=== PATIENT | male | born 1985 | race Caucasian/White ===

== ENCOUNTER 2017-09-29 08:07 | Day surgery (SDC) | payer MEDICAID, SELFPAY ==
[2017-09-26 14:23] VITALS: BMI 19.6
[2017-09-29] VITALS (9 sets, daily range): BP systolic 101–123; BP diastolic 56–81; PULSE 71–82; RESP 16–20; TEMP 36.3–37.1; O2SAT 93–100
--- NOTE | 2017-09-29 08:30 | HMH.ANESCL ---
[facility] Anesthesia Checklist - Patient Identification Patient Identification: Arm Band, Family - Structural Data Admitted From: Home Planned Operative Procedure/s: dental eua Consent for Planned Operative Procedure(s) Verified: Yes Verified Documents: Surgical Consent - NPO Status Verified Time NPO: 00:00 - Additional verifications Patient : No Anesthesia Reactions: No Hx Blood Transfusions: No Blood Transfusion Reaction: No Cephalosporin Allergy: No Previous Colonoscopy: No - Cardiovascular Assessment Heart Sounds: S1 & S2 Pulse Strength: Baseline Pulse Rhythm: Regular Peripheral Edema: No - Airway Assessment C-Spine Mobility Assessed: Yes TMJ Mobility Assessed: Yes Dentition: Poor Dentition - Neurological Assessment Level of Consciousness: Awake, Alert, Combative, Restless Hx Seizures: Yes Numbness or tingling in extremities: No - Anesthesia Plan Anesthesia Risk discussed: Yes Anesthesia Plan: Verified ASA Class: III Anesthesia Type: General [facility] Anesthesia HX I have reviewed the patient's past medical history: Yes Medical History: Reports:: Asthma, Gastroesophageal Reflux Disease(GERD), Seizures Denies:: Anxiety, Cancer (barretts), Depression, Diabetes Mellitus Type 1, Diabetes Mellitus Type 2, Internal Pacemaker, MRSA Other Medical History: Reports: Anemia Laterality Cases: Bilateral: Myringotomy (Ear Tubes), Tonsillectomy, Other Other Surgeries: Yes: Other. No: Pacemaker Amputation: No Fractures: No *Family Hx:: Cancer, Stroke, Heart Attack
[2017-09-29 10:35] LABS: Basophils % 0.6 % (0.1-2.0); Eosinophils # 0.1 K/mm3 (0.0-0.4); Eosinophils % 2.3 % (0.1-12.0); Hemoglobin 13.5 g/dL (14.1-18.0); Lymphocytes # 0.9 K/mm3 (0.7-4.5); Lymphocytes % 26.3 K/mm3 (10-50); Mean Corpuscular HGB Conc 32.1 g/dL (31.8-35.4); Mean Corpuscular Hemoglobin 28.7 pg (27.0-31.2); Mean Corpuscular Volume 89.3 fl (80-94); Mean Platelet Volume 6.9 fl (7.4-10.4); Monocytes # 0.3 K/mm3 (0.1-1.0); Monocytes % 9.2 % (1.7-9.3); Neutrophils % 61.5 % (37.0-80.0); Platelet Count 289 K/mm3 (142-424); Red Blood Count 4.71 M/mm3 (4.60-6.20); White Blood Count 3.3 K/mm3 (4.8-10.8)
[2017-09-29 10:44] LABS: Alanine Aminotransferase 30 U/L (12-78); Albumin/Globulin Ratio 1.3 (1.1-1.8); Alkaline Phosphatase 89 U/L (46-116); Aspartate Amino Transferase 16 U/L (15-37); Bilirubin,Total 0.2 mg/dL (0.2-1.0); Blood Urea Nitrogen 3 mg/dL (7-18); Calcium 8.9 mg/dL (8.5-10.1); Carbon Dioxide 31 mmol/L (21.0-32.0); Chloride 104 mmol/L (98-107); Creatinine Clearance Estimated 90 mL/min (0-300); Creatinine,Serum 0.79 mg/dL (0.70-1.30); Estimated Glomerular Filt Rate 114 ml/min (>60); GFR (African American) 138 ML/MIN (>60); Globulin 3.2 gm/dl (1.3-3.2); Glucose 101 mg/dL (74-106); Sodium 141 mmol/L (136-145); Total Protein,Serum 7.2 gm/dL (6.4-8.2)
--- NOTE | 2017-09-29 12:20 | P.PN_ITS ---
[facility] Anesthesia Record Part I Intake, IV Amount: 800 Estimated blood loss (mL): 0 Urine output (mL): 0 Blood Pressure: 115/62 SaO2: 98 Pulse Rate: 71 Respiratory Rate: 16 Temperature: 97.3 F Patient is:: Drowsy, Stable Stable to PACU at:: 12:15
--- NOTE | 2017-09-29 12:20 | P.PN_ITS ---
[facility] Anesthesia Record Part II Discharge Time: 12:45 Destination: [facility] PACU nurse assessment reviewed?: Yes Patient Condition:: Good Anesthesia Complications:: None
--- NOTE | 2017-09-29 12:20 | HMH.ANESII ---
[facility] Anesthesia Record Part II Discharge Time: 12:45 Destination: located within [facility] PACU nurse assessment reviewed?: Yes Patient Condition:: Good Anesthesia Complications:: None
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
--- NOTE | 2017-09-29 15:51 | SUR.OPER ---
Throat pack in 1133 and taken out at 1203 SS,RN Xrays started at 1125 and denistry started at 1133 SS,RN
--- NOTE | 2017-09-30 16:09 | HMH.ORALP ---
Date of procedure: 09/29/17 Date of : 85 Pre-op Diagnosis:: Mentally handicapped adult with dental decay present. Post-op diagnosis:: same Procedure performed:: The 32, M patient was transported to the [facility] OR pre operative holding room. In the holding room, an IV was started. The patient was then transported to the operating room where Al was nasotracheal intubated. Anesthesia was induced and maintained. The patient was draped in the usual manner. 18 intraoral x-rays were taken. The throat was suctioned free of debris. One single moist throat pack was placed in the posterior oral pharynx. A complete intra-oral exam and review of the complete set of x-rays was completed. Periodonal scaling and root planing was done in all four quadrants. A Prophy and fluoride treatment were also completed. The following teeth were restored as follows: Resin Based composite fillings were placed on #5-MB surface. Filling was filled with A-2 white resin filling material. Due to patient being under anesthesia no numbing was necessary. Estimated blood loss was nil. The patient tolerated all surgical procedures well and there were no surgical complications. The throat was irrigated and suctioned free of debris. The throat pack was removed. The patient was extubated without complications and taken to the postoperative anesthetic recovery room in satisfactory condition. Surgeon:: Lilian Randhawa DMD Business Services Assistant(s):: Lashanda Suarez Anesthesia: GETKaylee Estimated blood loss (mL): 0 Operative findings:: Same as procedure performed. Operative note:: Same as procedure performed. Disposition: PACU Specimens:: None Complications:: None.
[2017-10-01 10:28] LABS: Levetiracetam (Keppra) 84.3 ug/mL (10.0-40.0)
== END 2017-09-29 13:34 | disposition home or self-care (01) ==
LOC: OR 08:09
PROVIDERS: Family Provider Nurse Practitioner Family; PCP Nurse Practitioner Family; Visit Provider Dentist General Practice
PROC: (CPT 41899; principal; 2017-09-29 09:45)
DX: K02.9 Dental caries, unspecified (principal); F79 Unspecified intellectual disabilities
CPT/HCPCS: 41899; D0210; D4341; 80053; 80177; 85025; J2405

== ENCOUNTER → 2018-02-05 13:08 | Outpatient (CLI) | payer MEDICAID, SELFPAY | PROVIDERS: Visit Provider Physician Assistant | DX: R31.9 Hematuria, unspecified (principal) ==

== ENCOUNTER → 2018-02-06 13:11 | Outpatient (CLI) | payer MEDICAID, SELFPAY ==
[2018-02-06 13:13] LABS: Microscopic, Urine URINE MICROSCOPIC (MICROSCOPIC)
[2018-02-06 13:32] LABS: Appearance,Urine CLEAR (Clear); Bilirubin,Urine Negative (Negative); Blood, Urine 3+ (Negative); Color,Urine YELLOW (Yellow); Glucose,Urine (UA) Negative (Negative); Ketones,Urine Negative (Negative); Leukocyte Esterase,Urine Negative (Negative); Nitrate,Urine Negative (Negative); Protein,Urine Negative (Negative); Urobilinogen,Urine 0.2 EU/dl (0.2)
[2018-02-06 13:54] LABS: Amorphous Sediment,Urine 1+ /lpf; Bacteria,Urine Trace /lpf; RBC,Urine 50-100 #/hpf (0-3); Squamous Epithelial Cell,Urine Occasional #/hpf (0-5); WBC,Urine Occasional #/hpf (0-3)
== END ==
PROVIDERS: Visit Provider Physician Assistant
DX: R32 Unspecified urinary incontinence (principal)
CPT/HCPCS: 81001

== ENCOUNTER → 2018-02-10 13:50 | Outpatient (CLI) | payer MEDICAID, SELFPAY ==
--- NOTE | 2018-02-10 13:52 | US_ITS ---
US kidney retroperitoneal comp Ordering Physician: SANDEEP Canseco Patient Age: 32 years: Male HISTORY: ITS.REASON: Urinary Incontinence Urinary incontinence has indwelling catheter. Possible blockage TECHNIQUE: Bilateral renal ultrasound with survey of bladder COMPARISON :None relevant available FINDINGS. The kidneys demonstrate no hydronephrosis nor masses good color Doppler flow normal size. Cortex appears well maintained. No ureteral dilatation. A question echogenic focus from calculus right kidney. Equivocal . Right kidney 9.5 cm length on my measurement x6.2 x 5 cm. Left kidney 10 cm x 1.3 cm x 6.3 cm. Images included spleen: appear normal size. Final images show a moderately filled bladder. Moderate size measuring 7 cm x 4.1 cm x 8.7 cm. With this the estimated volume by the ultrasound algorithm is 131-mL. I do not see the indwelling catheter on these pictures of the bladder. IMPRESSION: Kidneys appear normal in size with no hydronephrosis. Moderate size filled bladder observed..
== END ==
PROVIDERS: Family Provider Nurse Practitioner Family; PCP Nurse Practitioner Family; Visit Provider Physician Assistant
DX: R32 Unspecified urinary incontinence (principal)
CPT/HCPCS: 76770

== ENCOUNTER 2018-04-15 11:01 | Outpatient (CLI) | payer MEDICAID, SELFPAY ==
[2018-04-15 11:55] VITALS: BP 146/96; PULSE 120; RESP 20; O2SAT 98
[2018-04-15 12:20] VITALS: BP 146/96; PULSE 120; RESP 20; O2SAT 98
[2018-04-15 12:35] VITALS: BP 125/92; PULSE 91; RESP 16
[2018-04-15 13:05] VITALS: BP 136/77; PULSE 97; RESP 16
== END 2018-04-15 13:30 | disposition home or self-care (01) ==
LOC: INF 11:01
PROVIDERS: PCP Internal Medicine Adolescent Medicine; Visit Provider Internal Medicine Adolescent Medicine
DX: K90.9 Intestinal malabsorption, unspecified (principal)
CPT/HCPCS: 96372; 96374; Q0138

== ENCOUNTER → 2018-04-30 10:44 | Outpatient (CLI) | payer MEDICAID, SELFPAY ==
--- NOTE | 2018-04-30 10:47 | XR_ITS ---
XR chest AP HISTORY: Cough. ITS.REASON: surgery clearance ORDERING PHYSICIAN: Al Moreau MD PATIENT AGE: 32 years Technique: AP CXR. Single view COMPARISON: Previous CXR 04/16/2017 & 02/07/2017 FINDINGS: Appears to be diffuse prominent gaseous distention of the esophagus on this AP CXR.. Curious unusual dilated esophageal appearance throughout with what I suspect is some generous wall thickness esophagus particularly evident distal.. No air-fluid level. The gaseous distention is seen throughout entire thoracic esophagus and lower cervical.-With Dilatation most evident at the level of the head of the clavicles where the gas distended esophagus measures over 4 cm diameter.. Requires correlation.. Differential diagnosis would include achalasia, scleroderma, Chagas disease, distal esophageal stricture I briefly entertain the possibility that the patient could've had a large belch just at the time of the CXR, but I doubt this is the case given overall appearance.. More likely that this appearance there there is underlying pathology at esophagus.. No fluid level is seen within the esophagus. Moderate distended fluid-filled stomach. Patient would benefit from further evaluation of esophagus, particular if symptoms in this region. Otherwise there is less then optimal inspiration on today's CXR, with with diaphragms only down to the anterior fourth rib bilaterally. This poor inspiration slightly crowds markings but the lungs appear overall clear with no active disease. Cortex and not the patient was difficult and uncooperative. a stable calcified granuloma at the right lung projected over the between the anterior right third and fourth rib. This is unchanged stable. Small calcified hilar nodes.. Borderline cardiomegaly most likely with heart size accentuated by the suboptimal inspiration.. Lungs are clear. Otherwise. No pleural effusions or pleural findings. No acute bony abnormalities. IMPRESSION:\ 1. Appears to be diffuse pronounced gaseous distention of the entire thoracic esophagus & including lower cervical esophagus.. Correlation required. Note comments in text. (Is there a history of achalasia, or scleroderma, or reflux stricture?. Recommend further evaluation of the esophagus). 2. Suboptimal inspiration on this CXR; but the lungs otherwise appear clear otherwise with no active disease. No active cardiopulmonary disease.
== END ==
PROVIDERS: PCP Internal Medicine Adolescent Medicine; Visit Provider Internal Medicine Adolescent Medicine
DX: R05 Cough (principal)
CPT/HCPCS: 71045

== ENCOUNTER → 2018-12-10 13:34 | Outpatient (CLI) | payer MEDICAID, SELFPAY ==
[2018-12-10 13:54] LABS: Basophils % 0.3 % (0.1-2.0); Eosinophils # 0.1 K/mm3 (0.0-0.4); Eosinophils % 0.9 % (0.1-12.0); Hematocrit 42.2 % (42.0-52.0); Hemoglobin 14.8 g/dL (14.1-18.0); Lymphocytes # 0.8 K/mm3 (0.7-4.5); Lymphocytes % 6.4 % (10-50); Mean Corpuscular HGB Conc 35.1 g/dL (31.8-35.4); Mean Corpuscular Hemoglobin 31.4 pg (27.0-31.2); Mean Corpuscular Volume 89.4 fl (80-94); Mean Platelet Volume 6.4 fl (7.4-10.4); Monocytes # 0.5 K/mm3 (0.1-1.0); Monocytes % 3.9 % (1.7-9.3); Neutrophils % 88.4 % (37.0-80.0); Platelet Count 303 K/mm3 (142-424); Red Blood Count 4.72 M/mm3 (4.60-6.20); Red Cell Distribution Width 13.2 % (11.5-17.5); White Blood Count 12.5 K/mm3 (4.8-10.8)
[2018-12-10 13:56] LABS: MANUAL DIFFERENTIAL MANUAL DIFFERENTIAL (MANUAL DIFF)
[2018-12-10 14:09] LABS: Lymphocytes % 9 % (10-50); Monocytes % 3 % (2-9); Neutrophils % 88 % (42-76); Platelet Estimate Normal; RBC Morphology Normal; Total Cells Counted 100
[2018-12-10 14:43] LABS: Ferritin 83 ng/mL (8-388)
[2018-12-12 07:13] LABS: Iron 28 ug/dL (38-169); UIBC 271 ug/dL (111-343)
[2018-12-13 17:22] LABS: Iron Saturation 9 % (15-55)
== END ==
PROVIDERS: Visit Provider Internal Medicine Medical Oncology
DX: D50.9 Iron deficiency anemia, unspecified (principal)
CPT/HCPCS: 36415; 82728; 83540; 83550; 85007; 85025

== ENCOUNTER → 2018-12-15 15:25 | Outpatient (CLI) | payer MEDICAID, SELFPAY | PROVIDERS: Visit Provider Physician Assistant | DX: R82.998 Other abnormal findings in urine (principal) | CPT/HCPCS: 87086 ==

== ENCOUNTER 2019-01-27 10:59 | Outpatient (CLI) | payer MEDICAID, SELFPAY ==
[2019-01-27 11:05] VITALS: BP 158/97; PULSE 114; RESP 20; O2SAT 96
--- NOTE | 2019-01-27 11:30 | PC.NURSE ---
1130-pt drowsy,eyes open,follows commands minimally, loc pt's baseline.
[2019-01-27 11:35] VITALS: BP 154/96; PULSE 111; RESP 18; O2SAT 96
--- NOTE | 2019-01-27 11:45 | PC.NURSE ---
1145-pt vomited in bed but is back to baseline; pt alert not drowsy.
[2019-01-27 12:04] VITALS: BP 129/78; PULSE 118; RESP 20; O2SAT 96
--- NOTE | 2019-01-27 12:04 | PC.NURSE ---
1204-pt has not had anymore episodes of emesis; pt is back to baseline.
[2019-01-27 12:25] VITALS: BP 132/85; PULSE 115; RESP 20; O2SAT 95
--- NOTE | 2019-01-27 12:26 | PC.NURSE ---
1105-pt alert, eyes open,follows commands minimally pt's baseline.
== END 2019-01-27 12:25 | disposition home or self-care (01) ==
LOC: INF 11:00
PROVIDERS: Visit Provider Internal Medicine Medical Oncology
DX: D50.9 Iron deficiency anemia, unspecified (principal)
CPT/HCPCS: 96372; 96374; J1439

== ENCOUNTER 2019-02-03 11:01 | Outpatient (CLI) | payer MEDICAID, SELFPAY ==
[2019-02-03 12:11] VITALS: BP 183/89; PULSE 123; RESP 18; O2SAT 98
--- NOTE | 2019-02-03 12:11 | PC.NURSE ---
1211-pt alert and at baseline.
[2019-02-03 12:40] VITALS: BP 159/96; PULSE 112; RESP 18; O2SAT 96
[2019-02-03 13:00] VITALS: BP 140/87; PULSE 107; RESP 18; O2SAT 95
--- NOTE | 2019-02-03 13:00 | PC.NURSE ---
1300-pt alert back to baseline
--- NOTE | 2019-02-03 14:56 | PC.NURSE ---
1240-pt slightly drowsy but alert.
== END 2019-02-03 13:10 | disposition home or self-care (01) ==
LOC: INF 11:01
PROVIDERS: Visit Provider Internal Medicine Medical Oncology
DX: D50.9 Iron deficiency anemia, unspecified (principal)
CPT/HCPCS: 96365; 96372; J1439

== ENCOUNTER 2019-10-01 10:30 | Outpatient (CLI) | payer MEDICAID, SELFPAY ==
[2019-10-01 10:30] VITALS: BP 127/77; PULSE 90; RESP 20; TEMP 36.9; O2SAT 95
[2019-10-01 11:15] VITALS: BP 112/74; PULSE 68; RESP 20; TEMP 36.9; O2SAT 95
== END 2019-10-01 12:10 | disposition home or self-care (01) ==
LOC: INF 10:30
PROVIDERS: Visit Provider Internal Medicine Medical Oncology
DX: D50.9 Iron deficiency anemia, unspecified (principal); K90.9 Intestinal malabsorption, unspecified
CPT/HCPCS: 96365; Q0138

== ENCOUNTER 2019-10-04 11:14 | Outpatient (CLI) | payer MEDICAID, SELFPAY ==
[2019-10-04 11:14] VITALS: BP 124/74; PULSE 68; RESP 20; TEMP 36.9; O2SAT 95
[2019-10-04 11:45] VITALS: BP 123/74; PULSE 68; RESP 20; TEMP 36.9; O2SAT 95
== END 2019-10-04 11:45 | disposition home or self-care (01) ==
LOC: INF 11:14
PROVIDERS: Visit Provider Internal Medicine Medical Oncology
DX: D50.9 Iron deficiency anemia, unspecified (principal); K90.9 Intestinal malabsorption, unspecified
CPT/HCPCS: 96374; Q0138

== ENCOUNTER 2020-03-02 07:42 | Day surgery (SDC) | payer MEDICAID, SELFPAY ==
[2020-02-29 09:45] VITALS: BMI 19.9
[2020-03-02] VITALS (11 sets, daily range): BP systolic 107–169; BP diastolic 52–88; PULSE 78–119; RESP 13–20; TEMP 36.1–36.8; O2SAT 95–100
[2020-03-02 10:28] LABS: Chloride 102 mmol/L (98-107); Potassium 4.3 mmoL/L (3.5-5.1); Sodium 139 mmol/L (136-145)
[2020-03-02 10:31] LABS: Alanine Aminotransferase 23 U/L (12-78); Albumin Level 4.2 g/dl (3.5-5.0); Albumin/Globulin Ratio 1.6 (1.1-1.8); Alkaline Phosphatase 61 U/L (38-126); Anion Gap 13.3 mEq/L (5-15); Aspartate Amino Transferase 29 U/L (17-59); Bilirubin,Total 0.4 mg/dl (0.2-1.3); Blood Urea Nitrogen 6 mg/dl (9-20); Calcium 9.4 mg/dl (8.4-10.2); Carbon Dioxide 28 mmol/L (22.0-30.0); Creatinine Clearance Estimated 114 mL/min (50-200); Estimated Glomerular Filt Rate 154 ml/min (>60); GFR (African American) 187 ML/MIN (>60); Globulin 2.6 g/dL (1.3-3.2); Glucose 104 mg/dl (74-100); Total Protein,Serum 6.8 g/dl (6.3-8.2)
--- NOTE | 2020-03-02 10:35 | P.PN_ITS ---
[facility] Anesthesia Checklist - Patient Identification Patient Identification: Arm Band, Guardian - Structural Data Admitted From: Home Planned Operative Procedure/s: dental Consent for Planned Operative Procedure(s) Verified: Yes Verified Documents: Surgical Consent, History and Physical - NPO Status Verified Time NPO: 00:00 - Additional verifications Anesthesia Reactions: No Hx Blood Transfusions: No Blood Transfusion Reaction: No - Airway Assessment C-Spine Mobility Assessed: Yes (mp2) TMJ Mobility Assessed: Yes Dentition: Good Dentition - Neurological Assessment Level of Consciousness: Awake - Anesthesia Plan Anesthesia Risk discussed: Yes Anesthesia Plan: Verified ASA Class: III Anesthesia Type: General [facility] History I have reviewed the patient's past medical history: Yes Medical History: Reports:: Asthma, Gastroesophageal Reflux Disease(GERD), Heart Murmur, Seizures Denies:: Anxiety, Cancer, Depression, Diabetes Mellitus Type 1, Diabetes Mellitus Type 2, Internal Pacemaker, MRSA *Have you ever received a pneumonia vaccine?: No *Have you received a flu vaccine this season?: No Other Medical History: Reports: Anemia. Denies: Blood Transfusion Reaction Anesthesia experience/problems:: nac Laterality Cases: Bilateral: Myringotomy (Ear Tubes), Tonsillectomy, Other Other Surgeries: Yes: Other. No: Pacemaker Amputation: No Fractures: No - *Social History Smoking Status: Never smoker Alcohol Intake: never Alcohol Intake Frequency:: other Substance Use Type: denies use *Occupational Status:: disabled Housing: house Household Members: family *Travel in the last 8 weeks: None - Psychiatric History Pschychiatric History:: Denies:: Anxiety, Attention Deficit Disorder, Bipolar Disorder, Depression, E ating Disorder, Post Traumatic Stress Disorder, Suicide Attempt, Psychiatric Treatment, Schizophrenia Family Hx:: Unable to obtain
[2020-03-02 10:38] LABS: Basophils # 0.1 K/mm3 (0-0.2); Basophils % 0.6 % (0.1-2.0); Eosinophils # 0.3 K/mm3 (0.0-0.4); Eosinophils % 3.5 % (0.1-12.0); Hematocrit 40.1 % (42.0-52.0); Lymphocytes # 0.7 K/mm3 (0.7-4.5); Lymphocytes % 7.7 % (10-50); Mean Corpuscular Hemoglobin 32.5 pg (27.0-31.2); Monocytes # 0.4 K/mm3 (0.1-1.0); Monocytes % 4.2 % (1.7-9.3); Neutrophils # 7.3 K/mm3 (1.8-7.8); Neutrophils % 83.9 % (37.0-80.0); Platelet Count 263 K/mm3 (142-424); Red Blood Count 4.31 M/mm3 (4.60-6.20); Red Cell Distribution Width 12.2 % (11.5-17.5); White Blood Count 8.7 K/mm3 (4.8-10.8)
[2020-03-02 10:40] LABS: Coronavirus 19 IgG Antibody Negative (Negative); Coronavirus 19 IgM Antibody Negative (Negative)
[2020-03-02 10:48] LABS: Free Thyroxine Index 2.6 ug/dL (5.93-13.13); T4 (Thyroxine) 8.9 ug/dl (5.53-11.0); Triiodothryronine (T3) Uptake 29 % (23.5-40.5)
[2020-03-02 11:01] LABS: Thyroid Stimulating Hormone 2.39 uIU/mL (0.465-4.68)
--- NOTE | 2020-03-02 13:52 | P.PN_ITS ---
[facility] Anesthesia Record Part I Intake, IV Amount: 800 Estimated blood loss (mL): 0 Urine output (mL): 0 (NM) Blood Products used (#): none Blood Pressure: 108/64 SaO2: 96 Pulse Rate: 79 Respiratory Rate: 16 Temperature: 97.0 F Patient is:: Drowsy, Stable Stable to PACU at:: 13:45
--- NOTE | 2020-03-02 20:20 | HMH.ANESII ---
[facility] Anesthesia Record Part II Discharge Time: 14:15 Destination: Surgical Day Care (OP Surgery) PACU nurse assessment reviewed?: Yes Patient Condition:: Good Anesthesia Complications:: None Swallowing reflex intact?: Yes Cyanosis?: No Blood Pressure: 122/82 Pulse Rate: 88 Temperature: 97 F Mental Status: Alert & Oriented (Returned to baseline mental status), Confused and Disoriented Pain level:: 0 Nausea and/or vomitting:: None Intake, IV Amount: 0
--- NOTE | 2020-03-03 09:34 | P.PCN_ITS ---
Date of procedure: 03/02/20 Date of : 85 Pre-op Diagnosis:: Periodontal gum disease and broken/lost filling. Post-op diagnosis:: other (Restored) Procedure performed:: The 34, M patient was transported to the [facility] OR pre operative holding room per his father. In the holding room, an IV was started. The patient was then transported to the operating room where Al was nasotracheal intubated. Anesthesia was induced and maintained. The patient was draped in the usual manner. 18 intraoral x-rays were taken. The throat was suctioned free of debris. One single moist throat pack was placed in the posterior oral pharynx. A complete intra-oral exam and review of the complete set of x-rays was completed. Periodontal scaling and root planing was completed in all four quadrants. The patient was found to have: #12-DF surfaces was repaired using B1 white flowable resin material. Bite was checked and adjusted as needed. Estimated blood loss was nil. The patient tolerated all procedures well and there were no complications. The throat was irrigated and suctioned free of debris. The throat pack was removed. The patient was extubated without complications and taken to the postoperative anesthetic recovery room in satisfactory condition. Surgeon:: Lilian Randhawa DMD Land Survey Technician(s):: Amy Weston SLEEVE SETTER SAFETY STITCH:: Teo Wang Anesthesia: GETA Estimated blood loss (mL): 0 Operative findings:: Same as pre-op diagnosis Operative note:: Same as procedure performed. Disposition: PACU Specimens:: 0 Complications:: none
[2020-03-06 10:31] LABS: Levetiracetam (Keppra) 51.2 ug/mL (10.0-40.0)
== END 2020-03-02 14:47 | disposition home or self-care (01) ==
LOC: OR 07:46
PROVIDERS: PCP Internal Medicine Adolescent Medicine; Visit Provider Dentist General Practice
PROC: (CPT 41899; principal; 2020-03-02 09:45)
DX: K02.9 Dental caries, unspecified (principal)
CPT/HCPCS: 41899; D4341; 80053; 80177; 84436; 84443; 84479; 85025; 86328; J2405

== ENCOUNTER → 2020-12-19 09:14 | Outpatient (CLI) | payer MEDICAID, SELFPAY ==
[2020-12-19 09:58] LABS: Basophils # 0.1 K/mm3 (0-0.2); Basophils % 1.2 % (0.1-2.0); Eosinophils # 0.5 K/mm3 (0.0-0.4); Eosinophils % 10.1 % (0.1-12.0); Hematocrit 45.4 % (42.0-52.0); Hemoglobin 15.5 g/dL (14.1-18.0); Lymphocytes # 1.1 K/mm3 (0.7-4.5); Mean Corpuscular HGB Conc 34.1 g/dL (31.8-35.4); Mean Corpuscular Hemoglobin 31.1 pg (27.0-31.2); Mean Corpuscular Volume 91.4 fl (80-94); Mean Platelet Volume 7.2 fl (7.4-10.4); Monocytes # 0.3 K/mm3 (0.1-1.0); Monocytes % 7.1 % (1.7-9.3); Neutrophils # 2.6 K/mm3 (1.8-7.8); Neutrophils % 56.7 % (37.0-80.0); Platelet Count 299 K/mm3 (142-424); Red Blood Count 4.97 M/mm3 (4.60-6.20); Red Cell Distribution Width 14.1 % (11.5-17.5); White Blood Count 4.6 K/mm3 (4.8-10.8)
[2020-12-19 12:21] LABS: Ferritin 83.5 ng/ml (17.9-464)
[2020-12-19 12:45] LABS: Iron 56 ug/dL (49-181)
[2020-12-19 12:54] LABS: Total Iron Binding Capacity 266 ug/dL (261-462)
== END ==
PROVIDERS: Visit Provider Internal Medicine Medical Oncology
DX: D50.9 Iron deficiency anemia, unspecified (principal)
CPT/HCPCS: 36415; 82728; 83540; 83550; 85025

== ENCOUNTER → 2021-11-28 08:02 | Outpatient (CLI) | payer MEDICAID, SELFPAY | PROVIDERS: Visit Provider Dentist General Practice | DX: Z01.812 Encounter for preprocedural laboratory examination (principal); Z11.52 Encounter for screening for COVID-19 | CPT/HCPCS: C9803; U0003; U0005 ==

== ENCOUNTER 2021-11-29 08:24 | Day surgery (SDC) | payer MEDICAID, SELFPAY ==
[2021-11-27 08:46] VITALS: BMI 19.3
[2021-11-29] VITALS (10 sets, daily range): BP systolic 137–157; BP diastolic 73–99; PULSE 75–126; RESP 14–18; TEMP 36.3–43; O2SAT 98–100
--- NOTE | 2021-11-29 08:51 | P.PN_ITS ---
[facility] Anesthesia Checklist - Patient Identification Patient Identification: Arm Band - Structural Data Admitted From: Home Planned Operative Procedure/s: Dental cleaning/fillings Consent for Planned Operative Procedure(s) Verified: Yes - NPO Status Verified Time NPO: 00:00 - Additional verifications Anesthesia Reactions: No Hx Blood Transfusions: No Blood Transfusion Reaction: No - Cardiovascular Assessment Heart Sounds: Murmur - Airway Assessment C-Spine Mobility Assessed: Yes TMJ Mobility Assessed: Yes Dentition: Poor Dentition - Neurological Assessment Level of Consciousness: Awake Hx Seizures: Yes Numbness or tingling in extremities: No - Anesthesia Plan Anesthesia Risk discussed: Yes Anesthesia Plan: Verified ASA Class: III Anesthesia Type: General [facility] History I have reviewed the patient's past medical history: Yes Medical History: Reports:: Asthma, Gastroesophageal Reflux Disease(GERD), Heart Murmur, Seizures Denies:: Anxiety, Cancer, Depression, Diabetes Mellitus Type 1, Diabetes Mellitus Type 2, Internal Pacemaker, MRSA *Have you ever received a pneumonia vaccine?: No *Have you received a flu vaccine this season?: No Other Medical History: Reports: Anemia. Denies: Blood Transfusion Reaction Anesthesia experience/problems:: Seizure Laterality Cases: Bilateral: Myringotomy (Ear Tubes), Tonsillectomy, Other Other Surgeries: Yes: No Previous Surgery, Other. No: Pacemaker Amputation: No Fractures: No - *Social History Smoking Status: Never smoker Alcohol Intake: never Alcohol Intake Frequency:: other Substance Use Type: denies use *Occupational Status:: disabled Housing: house Household Members: family *Travel in the last 8 weeks: None - Psychiatric History Pschychiatric History:: Denies:: Anxiety, Attention Deficit Disorder, Bipolar Disorder, Depression, Eating Disorder, Post Traumatic Stress Disorder, Suicide Attempt, Psychiatric Treatment, Schizophrenia Family Hx:: Unable to obtain
--- NOTE | 2021-11-29 12:18 | HMH.ANESI ---
[facility] Anesthesia Record Part I Intake, IV Amount: 400 Estimated blood loss (mL): 0 Urine output (mL): 0 Blood Products used (#): none Blood Pressure: 150/96 SaO2: 98 Pulse Rate: 81 Respiratory Rate: 14 Temperature: 97.4 F Patient is:: Drowsy Stable to PACU at:: 12:14
--- NOTE | 2021-11-29 12:27 | PC.NURSE ---
father at bedside. pt awake now. requesting food and drink. Dietery called to bring pt a meal in postop.
--- NOTE | 2021-11-29 15:05 | HMH.ANESII ---
[facility] Anesthesia Record Part II Discharge Time: 12:34 Destination: Surgical Day Care (OP Surgery) PACU nurse assessment reviewed?: Yes Patient Condition:: Good Anesthesia Complications:: None Swallowing reflex intact?: Yes Cyanosis?: No Blood Pressure: 143/96 Pulse Rate: 96 Temperature: 97.7 F Mental Status: Alert & Oriented Pain level:: 0 Nausea and/or vomitting:: None Intake, IV Amount: 0
--- NOTE | 2021-11-30 09:54 | P.PCN_ITS ---
Date of procedure: 11/29/21 Date of : 85 Pre-op Diagnosis:: dental decay Post-op diagnosis:: same Procedure performed:: The 36, M patient was transported to the [facility] OR pre operative holding room per his father. In the holding room, an IV was started. The patient was then transported to the operating room where Al was nasotracheal intubated. Anesthesia was induced and maintained. The patient was draped in the usual manner. 18 intraoral x-rays were taken. The throat was suctioned free of debris. One single moist throat pack was placed in the posterior oral pharynx. A complete intra-oral exam and review of the complete set of x-rays was completed. Periodontal scaling and root planing was completed in all four quadrants, UR, LR, UL, LL. The patient was found to have decay on tooth #11. Treated by composite restorat ion #11-MDLF surfaces. Filled with composite white filling material. The patient was given 4 capules, 144mg of Octacaine with Epinephrine 1:100,000 which was 0.3mg for postoperative pain control. Estimated blood loss was nil. The patient tolerated all surgical procedures well and there were no surgical complications. The throat was irrigated and suctioned free of debris. The throat pack was removed. The patient was extubated without complications and taken to the postoperative anesthetic recovery room in satisfactory condition. Surgeon:: Lilian Randhawa DMD General Intern(s):: Amy Weston SUPERVISOR PASTE MIXING:: Other (Jarvis Guzman) Anesthesia: GETA Estimated blood loss (mL): 0 Operative findings:: dental decay Operative note:: same as procedure performed Disposition: PACU Specimens:: none Complications:: none
== END 2021-11-29 13:05 | disposition home or self-care (01) ==
LOC: OR 08:25
PROVIDERS: PCP Internal Medicine Adolescent Medicine; Visit Provider Dentist General Practice
PROC: (CPT 41899; principal; 2021-11-29 10:15)
DX: K02.9 Dental caries, unspecified (principal); F43.0 Acute stress reaction
CPT/HCPCS: 41899; D4341; D2335; J0330; J2405

== ENCOUNTER 2022-02-03 13:58 | Emergency (ER) | payer MEDICAID, SELFPAY ==
[2022-02-03 14:40] VITALS: PULSE 94; RESP 18; TEMP 37.5; O2SAT 96; BMI 20.1
--- NOTE | 2022-02-03 14:50 | HMH.EDUTC ---
[facility] Disposition Clinical Impression: Strep throat Disposition: Home, Self-Care Condition on Discharge: Good Instructions: Strep Throat, DI for Strep Throat Additional Instructions: Encourage him to drink fluids Give the medication as prescribed. Throw his tooth brush away and get a new one. 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 GO TO THE EMERGENCY ROOM FOR ANY WORSENING OR LIFE THREATENING SYMPTOMS. Prescriptions: clindamycin HCL [Cleocin HCl] 300 mg PO TID 10 Days #30 cap Transmission Status: Received by [facility] Referrals: Parish Marin MD [Primary Care Provider] - Time of Disposition: 15:36 Medical Decision Making - Medical Records Medical records reviewed: No: I reviewed the patient's medical records. - Santiago Inquiry Pt receiving controlled substance: No Vital Signs: 02/03/22 14:40 02/03/22 15:42 Temperature 99.5 F 99.5 F Temperature Source Oral Pulse Rate 94 H Pulse Rate [Right Brachial] 94 H Respiratory Rate 18 18 Blood Pressure 0/0 L 02 Sat by Pulse Oximetry 96 Oxygen Delivery Method Room Air - Lab Data Lab results reviewed: Yes: I reviewed the patient's lab results. Lab Results 02/03/22 15:17: Strep Scn Rapid Clinic Positive A [facility] HPI - General Stated complaint: low temp, cold Time Seen by Provider: 02/03/22 14:50 - History of Present Illness Provider Complaint: His father states that the patient has been very fatigued and he has felt bad for the past 3 days. He has had a poor appetite also. He has a history of being nonverbal and autism. - Related Data Home Medications Medication Instructions Recorded Confirmed loratadine 10 mg tablet 10 mg PO QDAY 07/28/17 11/29/21 omeprazole 40 mg capsule,delayed 40 mg PO DAILY 07/28/17 11/29/21 release folic acid 1 mg tablet 1 mg PO DAILY 11/24/17 11/29/21 sucralfate 100 mg/mL oral 2 g MS DAILY 08/27/18 11/29/21 suspension levETIRAcetam [Levetiracetam] 10 ml PO BID 11/27/21 11/29/21 Previous Rx's Medication Instructions Recorded albuterol sulfate 2 mg/5 mL oral 2 mg PO QID 90 Days #1800 ml 12/15/18 syrup clonazepam 0.5 mg disintegrating 0.5 mg PO TID #90 tab 12/15/18 tablet lactulose 10 gram/15 mL oral 10 g PO NEEDED PRN #500 ml 12/15/18 solution sulfamethoxazole 200 20 ml PO BID 90 Days #3600 ml 12/15/18 mg-trimethoprim 40 mg/5 mL oral suspension trazodone 50 mg tablet 100 mg PO TID #90 tab 12/15/18 diphenhydramine HCl 12.5 mg/5 mL 12.5 mg PO Q4-6H PRN #237 ml 06/22/19 oral liquid clindamycin HCL [Cleocin HCl] 300 mg PO TID 10 Days #30 cap 02/03/22 Allergies Allergy/AdvReac Type Severity Reaction Status Date / Time haloperidol [From HALDOL] Allergy Severe DIFFICULTY Verified 11/29/21 08:47 BREATHING/SEIZURES amoxicillin Allergy Unknown Verified 11/29/21 08:47 azithromycin [AZITHROMYCIN] Allergy Unknown Verified 11/29/21 08:47 cefaclor [CEFACLOR] Allergy Unknown Verified 11/29/21 08:47 cephalexin [From KEFLEX] Allergy Unknown Verified 11/29/21 08:47 clarithromycin [From BIAXIN] Allergy Unknown Verified 11/29/21 08:47 erythromycin base Allergy Unknown Verified 11/29/21 08:47 [ERYTHROMYCIN BASE] green pepper [GREEN PEPPER] Allergy Unknown Verified 11/29/21 08:47 lorazepam [From ATIVAN] Allergy Unknown Verified 11/29/21 08:47 metoclopramide [From REGLAN] Allergy Unknown Verified 11/29/21 08:47 Penicillins [PENICILLINS] Allergy Unknown Verified 11/29/21 08:47 risperidone [From RISPERDAL] Allergy Unknown Verified 11/29/21 08:47 tomato [TOMATO] Allergy Unknown Verified 11/29/21 08:47 influenza virus vaccine, AdvReac Verified 11/29/21 08:47 specific PETE PEPPER Allergy Unknown Uncoded 04/20/20 14:15 CHOCOLATE (FOOD) Allergy Unknown BARRETTS Uncoded 04/20/20 14:15 [facility] History - Hepatitis A Screen Attestation statement:: This patient has been screened for Hepatitis A risk factors. I have reviewed the patient's past medical history
[2022-02-03 15:25] LABS: UTC Strep Screen (Rapid) Positive (Negative)
[2022-02-03 15:42] VITALS: BP 0/0; PULSE 94; RESP 18; TEMP 37.5; O2SAT 96
== END 2022-02-03 15:48 | disposition home or self-care (01) ==
PROVIDERS: Nurse Practitioner Family; Emergency Provider Nurse Practitioner; PCP Internal Medicine Adolescent Medicine
DX: J02.0 Streptococcal pharyngitis (principal)
CPT/HCPCS: 87880; 99212; G0463

== ENCOUNTER 2023-04-03 10:24 | Day surgery (SDC) | payer MEDICAID, SELFPAY ==
[2023-04-02 11:25] VITALS: BMI 21.7
[2023-04-03] VITALS (8 sets, daily range): BP systolic 130–162; BP diastolic 61–102; PULSE 85–118; RESP 17–22; TEMP 36.1–36.6; O2SAT 96–100
--- NOTE | 2023-04-03 11:16 | P.PNANES_ITS ---
[facility] Disclaimer: The information contained in this section may have been updated after the patient was seen, as this information can be updated by other users. Medical History Behavior disturbance Mental and behavioral problem Seizures Surgical History History of dental surgery History of placement of ear tubes Hx of tonsillectomy Family History Other Family history of hyperlipidemia Family history of hypertension Social History Smoking Status: Never smoker second hand exposure: No alcohol intake: never counseling provided: none substance use type: denies use current occupational status: other Travel in the last 8 weeks: None household members: family housing: house current occupational exposures/hazards: No caffeine: Yes [facility] Anesthesia Checklist Patient Identification Patient Identification: Family Structural Data Admitted From: Home Planned Operative Procedure/s: dental procedures Consent for Planned Operative Procedure(s) Verified: Yes NPO Status Verified Time NPO: 00:00 Additional verifications Anesthesia Reactions: Yes (seizure x1 after anesthesia) Hx Blood Transfusions: No Blood Transfusion Reaction: No Airway Assessment Mallampati Score:: Class I C-Spine Mobility Assessed: Yes TMJ Mobility Assessed: Yes Dentition: Good Dentition Neurological Assessment Level of Consciousness: Awake, Alert and Appropriate Anesthesia Plan Anesthesia Risk discussed: Yes Anesthesia Plan: Patient unable to respond/answer Anesthesia Type: General
--- NOTE | 2023-04-03 13:17 | EXP.ANES.I ---
[facility] Anesthesia Record Part I Anesthesia Record I Intake, IV Amount: 400 Hydration: Adequate Estimated blood loss (mL): 5 Urine output (mL): 0 Blood Products used (#): none Blood Pressure: 143/84 SaO2: 99 Pulse Rate: 113 Airway Patency: Patent Respiratory Rate: 22 Temperature: 97.5 F Patient is:: Drowsy and Stable Stable to PACU at:: 12:55
--- NOTE | 2023-04-03 18:09 | P.PCN_ITS ---
Operative Note Date of procedure: 04/03/23 Date of : 85 Pre-op Diagnosis:: dental disease Post-op diagnosis:: other Procedure performed:: The 37, M patient was transported to the [facility] OR pre operative holding room per his father. In the holding room, an IV was started. The patient was then transported to the operating room where Al was nasotracheal intubated. Anesthesia was induced and maintained. The patient was draped in the usual manner. 18 intraoral x-rays were taken. The throat was suctioned free of debris. One single moist throat pack was placed in the posterior oral pharynx. A complete intra-oral exam and review of the complete set of x-rays was completed. Periodontal scaling and root planing was done in all four quadrants. A Prophy and fluoride treatment was also completed. The patient was found to have decay on tooth #11-MDLF surfaces. Filling was packed with A2 resin composite and flowable material. The patient was given 4 capules, 144mg of Octacaine with Epinephrine 1:100,000 which was 0.3mg for postoperative pain control. Estimated blood loss was nil. The patient tolerated all surgical procedures well and there were no surgical complications. The throat was irrigated and suctioned free of debris. The throat pack was removed. The patient was extubated without complications and taken to the postoperative anesthetic recovery room in satisfactory condition. Surgeon:: Lilian Randhawa DMD Toilet And Laundry Soap Supervisor(s):: Lashanda Suarez CARTRIDGE BELT PUNCHER:: Other Anesthesia: GETA Estimated blood loss (mL): 0 Operative findings:: periodontal disease Operative note:: same as procedure performed Disposition: PACU Specimens:: none Complications:: none
--- NOTE | 2023-04-03 18:09 | P.PCN_ITS ---
Operative Note Date of procedure: 04/03/23 Date of : 85 Pre-op Diagnosis:: dental disease Post-op diagnosis:: other Procedure performed:: The 37, M patient was transported to the [facility] OR pre operative holding room by his father. In the holding room, an IV was started. The patient was then transported to the operating room where Al was nasotracheal intubated. Anesthesia was induced and maintained. The patient was draped in the usual manner. 18 intraoral x-rays were taken. The throat was suctioned free of debris. One single moist throat pack was placed in the posterior oral pharynx. A complete intra-oral exam and review of the complete set of x-rays was completed. Periodontal scaling and root planing was completed in all four quadrants. A Prophy and fluoride treatment was also completed. The patient was found to have decay on tooth #11-MDLF surfaces. The filling was packed with A2 white resin flowable and composite material. Adjusted as needed. The patient was given 4 carpules, 144mg of Octacaine with Epinephrine 1:100,000 which was 0.3mg for postoperative pain control. Estimated blood loss was nil. The patient tolerated all surgical procedures well and there were no surgical complications. The throat was irrigated and suctioned free of debris. The throat pack was removed. The patient was extubated without complications and taken to the postoperative anesthetic recovery room in satisfactory condition. Surgeon:: Lilian Randhawa DMD Bottling Equipment Sales Representative(s):: Lashanda Suarez PROOFSHEET CORRECTOR:: Other Anesthesia: GETA Estimated blood loss (mL): 0 Operative findings:: periodontal disease Operative note:: same as procedure performed Disposition: PACU Specimens:: none Complications:: none
--- NOTE | 2023-04-04 08:11 | P.PNANES_ITS ---
[facility] Anesthesia Record Part II Anesthesia Record Part II Discharge Time: 13:25 Destination: Surgical Day Care (OP Surgery) PACU nurse assessment reviewed?: Yes Patient Condition:: Good Anesthesia Complications:: None Swallowing reflex intact?: Yes Airway Patency: Patent Cyanosis?: No Blood Pressure: 130/68 SaO2: 100 Respiratory Rate: 18 Pulse Rate: 89 Temperature: 97 F Mental Status: Alert & Oriented Pain level:: 0 Nausea and/or vomitting:: None Intake, IV Amount: 0 Hydration: Adequate
[2023-04-04 08:12] VITALS: BP 130/68; PULSE 89; RESP 18; TEMP 36.1; O2SAT 100
== END 2023-04-03 13:46 | disposition home or self-care (01) ==
PROVIDERS: PCP Internal Medicine Adolescent Medicine; Visit Provider Dentist General Practice
PROC: (CPT 41899; principal; 2023-04-03 13:00)
DX: K02.9 Dental caries, unspecified (principal); G80.8 Other cerebral palsy; G40.909 Epilepsy, unspecified, not intractable, without status epilepticus
CPT/HCPCS: 41899; D4341; J2405

== ENCOUNTER 2024-07-01 06:07 | Day surgery (SDC) | payer MEDICAID, SELFPAY ==
[2024-07-01] VITALS (7 sets, daily range): BP systolic 100–135; BP diastolic 51–80; PULSE 72–94; RESP 14–18; TEMP 36.2–43; O2SAT 94–99; BMI 19.5
--- NOTE | 2024-07-01 06:57 | P.PNANES_ITS ---
[facility] Disclaimer: The information contained in this section may have been updated after the patient was seen, as this information can be updated by other users. Medical History Seizures Mental and behavioral problem Behavior disturbance Surgical History Hx of tonsillectomy History of placement of ear tubes History of dental surgery Family History Other Family history of hyperlipidemia Family history of hypertension Social History (Updated 07/01/24 @ 06:21 by Gilma Gee RN) Smoking Status: Never smoker second hand exposure: No alcohol intake: never counseling provided: none substance use type: denies use current occupational status: other Travel in the last 8 weeks: None household members: family housing: house current occupational exposures/hazards: No caffeine: Yes [facility] Anesthesia Checklist Patient Identification Patient Identification: Arm Band and Family Structural Data Admitted From: Home Planned Operative Procedure/s: Teeth cleaning Consent for Planned Operative Procedure(s) Verified: Yes Verified Documents: Surgical Consent and History and Physical NPO Status Verified Time NPO: 00:00 Additional verifications Patient : No Anesthesia Reactions: Yes (seizure x1 after anesthesia) Hx Blood Transfusions: No Blood Transfusion Reaction: No Cephalosporin Allergy: Yes Previous Colonoscopy: No Airway Assessment Mallampati Score:: Class III C-Spine Mobility Assessed: Yes TMJ Mobility Assessed: No Dentition: Good Dentition Neurological Assessment Level of Consciousness: Awake, Alert and Inappropriate Hx Seizures: Yes Numbness or tingling in extremities: Yes Anesthesia Plan Anesthesia Risk discussed: Yes ASA Class: III Anesthesia Type: General
--- NOTE | 2024-07-01 08:51 | EXP.ANES.I ---
[facility] Anesthesia Record Part I Anesthesia Record I Intake, IV Amount: 500 Hydration: Adequate Estimated blood loss (mL): 5 Urine output (mL): 0 Blood Pressure: 107/61 SaO2: 98 Pulse Rate: 72 Airway Patency: Patent Respiratory Rate: 14 Temperature: 97.1 F Patient is:: Drowsy Stable to PACU at:: 08:50
--- NOTE | 2024-07-01 14:10 | P.PCN_ITS ---
Operative Note Date of procedure: 07/01/24 Date of : 85 Pre-op Diagnosis:: Periodontal Gum Disease/Mentally and Physically Hndicapped Post-op diagnosis:: same Procedure performed:: Oral Exam, Full Mouth X-Rays, Full mouth perio scales, and prophy Surgeon:: Lilian Randhawa DMD Search Manager(s):: Cortney Villareal STRUCTURAL ENGINEERING DRAFTING OFFICER:: Duc Cuadra Anesthesia: GETA Estimated blood loss (mL): 0 Operative note:: SRP completed all 4 quadrants, FMX completed in OR. Patient tolerated well. Disposition: same day Specimens:: none Complications:: none
--- NOTE | 2024-07-05 09:29 | EXP.ANES.II ---
[facility] Anesthesia Record Part II Anesthesia Record Part II Discharge Time: 09:10 Destination: Surgical Day Care (OP Surgery) PACU nurse assessment reviewed?: Yes Patient Condition:: Good Anesthesia Complications:: None Swallowing reflex intact?: Yes Airway Patency: Patent Cyanosis?: No Blood Pressure: 100/51 SaO2: 94 Respiratory Rate: 18 Pulse Rate: 78 Temperature: 97.1 F Mental Status: Alert & Oriented Pain level:: 0 Nausea and/or vomitting:: None Intake, IV Amount: 0 Hydration: Adequate
[2024-07-05 09:30] VITALS: BP 100/51; PULSE 78; RESP 18; TEMP 36.2; O2SAT 94
== END 2024-07-01 09:33 | disposition home or self-care (01) ==
PROVIDERS: PCP Internal Medicine Adolescent Medicine; Visit Provider Dentist General Practice
PROC: (CPT 41899; principal; 2024-07-01 07:30)
DX: G80.8 Other cerebral palsy (principal); K06.8 Other specified disorders of gingiva and edentulous alveolar ridge
CPT/HCPCS: 41899; J3490; J1100; J2250; J2405; J3010